=== PATIENT | female | born 1965 | race Caucasian/White ===

== ENCOUNTER → 2020-04-16 | Outpatient (CLI) | payer OTHER ==
[~2020-04-16] MED LIST: ASPIRIN325 PO; BENADRYL25 MG PO; CETIRIZINE HCL10 MG PO; CETIRIZINE HCL5 MG PO; COUMADIN 1MG TAB1 M1 PO; COUMADIN 3 MG TA3 M1 PO; COUMADIN 4 MG TA4 M1 PO; COUMADIN 5 MG TA5 M1 PO; DULOXETINE HCL30 MG PO; FLONASE 0.05%50 MCG NASAL; FLOVENT HFA 1110 MCG INH; FLOVENT HFA 4444 MCG INH; HUMIRA40 MG/0.1 SUBQ; LIPITOR 40 MG T40 M1 PO; LIPITOR40 MG PO; LISINOPRIL10 MG PO; LISINOPRIL20 MG PO; MAGOX 400400 MG PO; OMEPRAZOLE40 MG PO; PROAIR HFA8.5 GM INH; PROAIR RESPICL90 MCG IH; SINGULAIR 10 MG10 M1 PO; TRAZODONE HCL50 MG PO; VICTOZA 3-0.6 MG/0.1; VITAMINC500 PO
== END ==
LOC: LAB 07:37
PROVIDERS: ATTEND Student in an Organized Health Care Education/Training Program
DX: Z01.818 Encounter for other preprocedural examination (principal); Z11.59 Encounter for screening for other viral diseases

== ENCOUNTER 2020-04-21 10:00 | Day surgery (SDC) | payer OTHER ==
[~2020-04-21] VITALS: Ht 157.5 cm; Wt 93.9 kg
--- NOTE | ~2020-04-21 | O ---
[facility] [place] [address] OPERATIVE REPORT Name: CONCHITA GARCIA Room #: 150-1 [facility] M.R.#: [id number] Admission: 04/21/20 Attend Phys: Amada Cardoza, Discharge: Date of : 65 Report #: [id number] THIS REPORT FOR: cc: TERELL DOMINIQUE Physician not on staff Amada Cardoza MD ~ CC: TERELL Shipley Physician staff Amada Cardoza DATE OF SERVICE: 04/21/2020 PREOPERATIVE DIAGNOSIS: Right lunotriquetral ligament tear. POSTOPERATIVE DIAGNOSES: Right partial lunotriquetral ligament tear with significant unstable cartilaginous flap in the lunate and full-thickness cartilage defect from the scaphoid. PROCEDURE PERFORMED: Right wrist arthroscopy with lunotriquetral ligament debridement, debridement of a large cartilaginous unstable flap from the lunate and debridement of the scaphoid cartilage defect. SURGEON: Amada Cardoza MD ANESTHESIA: General mask anesthesia. ESTIMATED BLOOD LOSS: Minimal. TOURNIQUET TIME: 88 minutes. This was longer than typical due to arthroscope issues. COMPLICATIONS: None. CONDITION: Stable. DISPOSITION: Recovery room. INDICATIONS: The patient is a 54-year-old female with the above-mentioned diagnosis. She elects for operative treatment. The risks, benefits, alternatives and complications were discussed including but not limited to incomplete relief of her symptoms, infection, damage to vessels or nerves, or worsening of any symptoms or hardware problems. We discussed possible need for hardware removal in the future. Informed consent was obtained. The correct extremity was identified and labeled by myself after verbal confirmation of the patient as well as visual confirmation and signed informed consent. [address] [address] OPERATIVE REPORT Name: CONCHITA GARCIA Room #: 150-1 [facility] M.rGaciela.#: [id number] Admission: 04/21/20 Attend Phys: Amada Cardoza, Discharge: Date of : 65 Report #: [id number] DESCRIPTION OF PROCEDURE: The patient was brought back to the operating room and placed on the operating table in the supine position. She received preoperative antibiotics. Tourniquet was placed over padding on the patient's right upper extremity. The right upper extremity was sterilely prepped and draped in the usual fashion. Final timeout was taken to verify correct patient, operative procedure, and operative site, all concurred. The patient's finger was taken and placed into finger trap traction with careful attention placed to padding bony prominences and neurovascular structures. The arm was exsanguinated and the tourniquet inflated. Of note, during any equipment issues, the patient was taken out of traction. The surgery was initiated with the 2.7 mm scope and then a 1.9 mm scope was available. The 3-4 portal was localized with a needle. The skin only was incised. Dissection was carried down with blunt hemostat. Blunt trocar was inserted. The blunt trocar was removed. The camera was inserted and I was able to see the next cartilage on the scaphoid. There was difficulty entering the remainder of the joint and so a 1.9 scope was then utilized. The 1.9 scope was then utilized in the 3-4 portal. The volar ligaments looked to be in excellent condition. The scapholunate ligament was evaluated. It was somewhat stretched, but overall using the probe that was in 4-5 portal that looked to be in good condition. There was some noted cartilage loss on the proximal portion of the scaphoid. This can be seen on image on page 4. This was debrided, but there were no unstable areas. There was dorsal synovitis that was debrided. This can be seen on page 1. The lunate cartilage on the radial side looked to be in good condition. Next, the 6R portal was localized with a needle. Skin only was incised. Dissection was carried out with hemostat. Blunt trocar was inserted. The probe was then inserted and the TFCC was evaluated. It had a nice turgor with trampoline test and there was no instability with pulling it. This can be seen on page 2. There was a large cartilaginous flap on the ulnar side of the lunate. This can be seen on page 2 as well. A combination of biter and shaver were used to debride it. The fragments can be seen on page 3 and the images post-debridement on page 2 that there was some fraying of the lunotriquetral ligament. This was debrided as well with the shaver. Next, the radial midcarpal portal was localized with a needle. The skin only was incised. Dissection carried down with blunt hemostat. Blunt trocar and cannula was inserted. The cartilage on the scaphoid and the capitate looked to be in excellent condition. There was some midcarpal synovitis. This was debrided after localizing the ulnar midcarpal portal and carefully incising only the skin and inserting the shaver. There was a small step-off noted between the scaphoid and the lunate, but I was unable to get my probe in it. This can be seen on page 3 and then the lunotriquetral interval was tight as well. Next, attention was placed back to the radiocarpal portal. On page 4, the proximal scaphoid cartilaginous defect is noted and then the lunate defect after complete debridement to a stable rim. The instrumentation was then removed. The skin was then closed with 4-0 nylon suture. The wounds were infiltrated with approximately 5 mL of 0.25% Marcaine. She was placed in a bulky dressing and a volar slab splint. All fingers were [facility] [address] [address] OPERATIVE REPORT Name: CONCHITA GARCIA Room #: 150-1 [facility] M.Graciela.#: [id number] Admission: 04/21/20 Attend Phys: Amada Cardoza, Discharge: Date of : 65 Report #: [id number] pink with brisk capillary refill at the conclusion of the case after deflation of tourniquet and after application of the dressing, all sponge and needle counts were correct. The patient was transferred to postoperative recovery room in stable condition. By: 1538 1602 Amada Cardoza MD /nt
[2020-04-21 11:14] VITALS: BP 138/90
--- NOTE | 2020-04-21 11:36 | EKG ---
[facility] [place] [address] ELECTROCARDIOGRAM REPORT Name: CONCHITA GARCIA Room #: [address] [place] [address] M.R.#: [id number] Admission: 04/21/20 Attend Phys: Amada Cardoza, Discharge: Date of : 65 Report #: [id number] THIS REPORT FOR: cc: TERELL DOMINIQUE Physician not on staff Noel Swift MD ~ THIS REPORT FOR: //name// [facility] Test Date: 2020-04-21 Test Time: 10:59:16 Pat Name: CONCHITA GARCIA Department: Room: [facility] Gender: F Web Development Director: [facility] 1965 Requested By: Amada Cardoza Order Number: [id number] MD: Noel Swift Measurements Intervals [place] Rate: 98 P: -16 [place]: 153 QRS: -19 QRSD: 95 T: 17 QT: 365 QTc: 467 Interpretive Statements Sinus rhythm Left ventricular hypertrophy Compared to ECG 03/09/2016 18:21:57 No significant changes Electronically Signed On 04-21-2020 11:36:39 CDT by Noel Swift [email or web address] <ELECTRONICALLY SIGNED> By: Noel Swift MD 04/21/20 1136 1059 1059 Noel Swift MD /EPI
[2020-04-21 15:39] VITALS: BP 138/90
== END 2020-04-21 16:20 | disposition home or self-care (01) ==
LOC: OR 10:00 → TBA 10:00 → OR 10:58
PROVIDERS: ATTEND Orthopaedic Surgery Hand Surgery
DX: S63.511A Sprain of carpal joint of right wrist, initial encounter (principal); E11.9 Type 2 diabetes mellitus without complications; F41.9 Anxiety disorder, unspecified; G47.30 Sleep apnea, unspecified; K21.9 Gastro-esophageal reflux disease without esophagitis; Z98.890 Other specified postprocedural states; Z79.899 Other long term (current) drug therapy; Z88.2 Allergy status to sulfonamides; Z88.8 Allergy status to other drugs, medicaments and biological substances; X58.XXXA Exposure to other specified factors, initial encounter; Z86.73 Personal history of transient ischemic attack (TIA), and cerebral infarction without residual deficits; Y93.89 Activity, other specified; Y92.89 Other specified places as the place of occurrence of the external cause; Y99.8 Other external cause status
CPT/HCPCS: 50010; 50101; 50386; 51462; 56526; 57006; 57091; 62110; 62900; 70005